=== PATIENT | female | born 2000 | race Caucasian/White ===

== ENCOUNTER 2018-01-22 16:18 | Emergency (ER) | payer SELFPAY ==
[2018-01-22 16:18] VITALS: BP 115/76
[2018-01-22] MEDS ORDERED: NS(*) 0.9% 1000 ML BAG 1,000 ML IV ONE (16:23)
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
[2018-01-22 16:35] LABS: PLATELET COUNT, AUTOMATED 199 K/uL (150-450)
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
[2018-01-22] MEDS ORDERED: IOPAMIDOL 76% 100 ML INFUS BTL 100 ML ONE (16:50)
[2018-01-22 16:53] LABS: INR 0.99
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
[2018-01-22] MEDS ORDERED: IBUP800T37 PO (19:27)
== END 2018-01-22 19:38 | disposition home or self-care (01) ==
LOC: ER 16:48
DX: S43.101A Unspecified dislocation of right acromioclavicular joint, initial encounter (principal); V49.9XXA Car occupant (driver) (passenger) injured in unspecified traffic accident, initial encounter; M51.44 Schmorl's nodes, thoracic region
CPT/HCPCS: 70450; 71045; 71260; 72125; 72128; 74177; 82150; 83605; 83690; 84703; 85025; 85610; 85730; 86850; 86900; 86901; 93005; 96360; 96361; 99284; A4565; J7030; Q9967; 82040; 82247; 82310; 82374; 82435; 82565; 82947; 84075; 84132; 84155; 84295; 84450; 84460; 84520